=== PATIENT | male | born 1970 | race Caucasian/White ===

== ENCOUNTER 2022-11-13 14:14 | Emergency (ER) | payer OTHER ==
[~2022-11-13] VITALS: Ht 167.6 cm; Wt 79.4 kg
--- NOTE | 2022-11-13 15:05 | NUR ---
RADIOLOGY AT BEDSIDE FOR CHEST XRAY.
--- NOTE | 2022-11-13 15:05 | NUR ---
DR NG AT BEDSIDE FOR EVAL.
[2022-11-13 15:44] LABS: BASOPHILS % (AUTO) 0.5 % (0.0-2.0); EOSINOPHILS % (AUTO) 5.4 % (0.0-6.0); HEMATOCRIT 40 % (39-51); HEMOGLOBIN 13.4 g/dL (13.5-17.5); LYMPHOCYTES # (AUTO) 2.7 K/uL (0.8-4.8); LYMPHOCYTES % (AUTO) 36.9 % (20.0-44.0); MEAN CORPUSCULAR HGB CONC 34 g/dl (31.0-36.0); MEAN CORPUSCULAR VOLUME 96 fL (80-96); MONOCYTES # (AUTO) 0.4 K/uL (0.1-1.30); MONOCYTES % (AUTO) 5.9 % (2.0-12.0); NEUTROPHILS # (AUTO) 3.8 K/uL (1.8-8.9); NEUTROPHILS % (AUTO) 51.3 % (43.0-81.0); PLATELET COUNT (AUTO) 203 K/uL (150-450); RED BLOOD CELL COUNT(AUTO) 4.15 MIL/uL (4.5-6.0); WHITE BLOOD COUNT (AUTO) 7.4 K/uL (4.3-11.0)
[2022-11-13 15:58] LABS: CALCIUM, SERUM 8.5 mg/dL (8.5-10.1); CARBON DIOXIDE 24 mmol/L (21-32); CHLORIDE 113 mmol/L (98-107); CREATININE 0.9 mg/dL (0.6-1.3); GLUCOSE 100 mg/dL (74-106); POTASSIUM 3.7 mmol/L (3.5-5.1); SODIUM SERUM 149 mmol/L (136-145); UREA NITROGEN, BLOOD 17 mg/dL (7-18)
[2022-11-13 16:12] LABS: ALANINE AMINOTRANSFERASE 13 U/L (12-78); ALBUMIN 3.7 g/dL (3.4-5.0); ALKALINE PHOSPHATASE 97 U/L (46-116); ASPARTATE AMINOTRANSFERASE 22 U/L (15-37); BILIRUBIN,DIRECT 0.1 mg/dL (0.0-0.2); BILIRUBIN,TOTAL 0.3 mg/dL (0.2-1.0); TOTAL PROTEIN, SERUM 7.1 g/dL (6.4-8.2)
[2022-11-13 17:29] VITALS: BP 108/69
--- NOTE | 2022-11-13 17:29 | NUR ---
Patient discharged to home in stable condition. Written and verbal after care instructions given. Patient verbalizes understanding of instruction.IV removed. Catheter intact and site benign. Pressure and 4x4 applied to site. No bleeding noted.
== END 2022-11-13 17:30 | disposition home or self-care (01) ==
LOC: ER 14:23
DX: M50.321 Other cervical disc degeneration at C4-C5 level (principal); M50.322 Other cervical disc degeneration at C5-C6 level; M50.323 Other cervical disc degeneration at C6-C7 level; R20.2 Paresthesia of skin
CPT/HCPCS: 36415; 70450-TC; 71045-TC; 72125-TC; 80048-TC; 80076-TC; 84484-TC; 85025-TC

== ENCOUNTER 2024-06-27 20:59 | Emergency (ER) | payer OTHER ==
[~2024-06-27] VITALS: Ht 167.6 cm; Wt 74.8 kg
[2024-06-27 22:32] VITALS: BP 136/86; TEMP 98.1
[2024-06-28] MEDS: IPRATROPIUM NEB FS 0.5 MG/2.5 ML AMPUL.NEB NEB ONE (00:45)
[2024-06-28] MEDS: ALBUTEROL FS 2.5 MG/3 ML VIAL.NEB NEB ONE (00:45)
[2024-06-28] MEDS ORDERED: IPRATROPIUM NEB FS 0.5 MG/2.5 ML AMPUL.NEB ONE (00:46)
[2024-06-28] MEDS ORDERED: ALBUTEROL FS 2.5 MG/3 ML VIAL.NEB ONE (00:46)
[2024-06-28 00:58] VITALS: O2SAT 98
[2024-06-28] MEDS ORDERED: predniSONE 20 MG TABLET ONE (01:01)
[2024-06-28] MEDS: predniSONE 20 MG TABLET PO ONE (01:04)
[2024-06-28 01:13] VITALS: O2SAT 100
[2024-06-28 01:14] VITALS: O2SAT 98
[2024-06-28 01:29] VITALS: O2SAT 100
[2024-06-28 02:41] VITALS: O2SAT 99
[2024-06-28] MEDS ORDERED: PRED50TA PO (02:45)
[2024-06-28] MEDS ORDERED: ALBU8.5H8 INH (02:45)
== END 2024-06-28 02:41 | disposition home or self-care (01) ==
LOC: ER 21:20
DX: R06.02 Shortness of breath (principal); R06.2 Wheezing; F17.210 Nicotine dependence, cigarettes, uncomplicated; Z79.899 Other long term (current) drug therapy; Z79.52 Long term (current) use of systemic steroids; Z20.822 Contact with and (suspected) exposure to COVID-19
CPT/HCPCS: 99285; 71045; 99406; 87426; 94640 ×2; J7512

== ENCOUNTER 2024-08-27 16:28 | Emergency (ER) | payer OTHER ==
[~2024-08-27] VITALS: Ht 175.3 cm; Wt 66.7 kg
[~2024-08-27 16:28] MED LIST: ALBU8.5H8 INH; PRED50TA PO
[2024-08-27 17:33] LABS: BASOPHILS % (AUTO) 0.6 % (0.0-2.0); EOSINOPHILS # (AUTO) 0.5 K/uL (0.0-0.7); EOSINOPHILS % (AUTO) 5.7 % (0.0-6.0); HEMATOCRIT 41 % (39-51); HEMOGLOBIN 13.9 g/dL (13.5-17.5); LYMPHOCYTES # (AUTO) 2.5 K/uL (0.8-4.8); LYMPHOCYTES % (AUTO) 30.6 % (20.0-44.0); MEAN CORPUSCULAR HEMOGLOBIN 33 PG (26.0-33.0); MEAN CORPUSCULAR HGB CONC 34 g/dl (31.0-36.0); MEAN CORPUSCULAR VOLUME 96 fL (80-96); MONOCYTES # (AUTO) 0.5 K/uL (0.1-1.30); MONOCYTES % (AUTO) 6.1 % (2.0-12.0); NEUTROPHILS # (AUTO) 4.6 K/uL (1.8-8.9); PLATELET COUNT (AUTO) 212 K/uL (150-450); RED BLOOD CELL COUNT(AUTO) 4.21 MIL/uL (4.5-6.0); RED CELL DISTRIBUTION WIDTH 12.7 % (11.5-15.0)
[2024-08-27 17:47] LABS: CARBON DIOXIDE 30 mmol/L (21-32); CHLORIDE 108 mmol/L (98-107); CREATININE 0.9 mg/dL (0.6-1.3); GLUCOSE 92 mg/dL (74-106); POTASSIUM 3.5 mmol/L (3.5-5.1); SODIUM SERUM 143 mmol/L (136-145); UREA NITROGEN, BLOOD 20 mg/dL (7-18)
[2024-08-27 17:59] LABS: ALANINE AMINOTRANSFERASE 12 U/L (12-78); ALBUMIN 3.7 g/dL (3.4-5.0); ALKALINE PHOSPHATASE 107 U/L (46-116); ASPARTATE AMINOTRANSFERASE 15 U/L (15-37); BILIRUBIN,DIRECT 0.1 mg/dL (0.0-0.2); BILIRUBIN,TOTAL 0.3 mg/dL (0.2-1.0); NT-PRO BNP 152 pg/mL (0-125); TOTAL PROTEIN, SERUM 7.2 g/dL (6.4-8.2)
[2024-08-27] MEDS ORDERED: ACYC400T19 PO (18:16)
[2024-08-27] MEDS ORDERED: PRED20TA PO (18:16)
[2024-08-27] MEDS ORDERED: ACYCLOVIR 200 MG CAPSULE ONE (18:19)
[2024-08-27] MEDS ORDERED: predniSONE 20 MG TABLET ONE (18:19)
[2024-08-27] MEDS: predniSONE 50 MG TABLET PO ONE (18:24)
[2024-08-27] MEDS: ACYCLOVIR 200 MG CAPSULE PO ONE (18:24)
[2024-08-27] MEDS: predniSONE 20 MG TABLET PO ONE (18:24)
[2024-08-27 18:26] VITALS: BP 124/69; TEMP 98.6; O2SAT 99
== END 2024-08-27 18:28 | disposition home or self-care (01) ==
LOC: ER 16:28
DX: G51.0 Bell's palsy (principal); F17.200 Nicotine dependence, unspecified, uncomplicated; Z79.52 Long term (current) use of systemic steroids
CPT/HCPCS: 99285; 70450; 71045; 93005; 85025; 80048; 80076; 36415; 84484; 83880; 82962; J7512